=== PATIENT | male | born 1995 ===

== ENCOUNTER 2021-02-05 08:58 | Emergency (ER) | payer SELFPAY ==
[~2021-02-05] VITALS: Ht 172.7 cm; Wt 106.6 kg
[2021-02-05] MEDS ORDERED: CIPRODEX OTIC7.5 M1 RIGHTEAR (10:06)
== END 2021-02-05 10:19 | disposition home or self-care (01) ==
LOC: ER 08:58
DX: H60.501 Unspecified acute noninfective otitis externa, right ear (principal)
CPT/HCPCS: 99282